=== PATIENT | female | born 1965 | race Caucasian/White ===

== ENCOUNTER 2022-01-14 02:29 | Day surgery (SDC) | payer BC, SELFPAY ==
[2022-01-04 13:19] VITALS: BMI 26.0
--- NOTE | 2022-01-04 13:36 | PC.NURSE ---
Report to the Outpatient Waiting Room, entrance under the green pavilion located off [facility], at time 0800 on date 01/14/22. OR Time: 1000. Time changes happen often and if your time is changed the preop area will call you the afternoon before. - You and your visitor will be asked to self-screen and do not enter if you have any COVID symptoms. - Only one visitor and NO children visitors are allowed at this time. - The patient visitor is requested to leave or wait in car when not with patient due to restrictions. - A mask is required within the hospital. Patients may have clear liquids (water, carbonated beverages, clear teas, apple juice) until 3 hours prior to surgery with a maximum of 20 ounces. - No food from midnight until time of surgery Take the following medications with a SIP of water the morning of surgery: CLINDAMYCIN Medications to discontinue per physician: VITAMINS/SUPPLEMENTS Date to take last dose: 01/10/22 Please no make-up, nail belarusian, hairspray, perfume, deodorant, or body powder the day of surgery. No jewelry (including any body piercings) or valuables the day of surgery, leave them at home. Please take a shower or bath the night before, or the morning of, surgery with an antibacterial soap. Wear comfortable, loose fitting clothing. - Jewelry must be removed prior to entering the operating room. Rings and piercings that are not removed may be cut off. - The hospital will not accept responsibility for valuables. - Please leave all valuables, including medications, at home the day of surgery. If you are going home after surgery, a licensed sanitation truck driver must drive you home. - NO public transportation without another adult. - We recommend that an adult stay with you for 24 hours following discharge. - We also recommend that you do not drive, make important decision, drink alcoholic beverages, or take any drugs that were not prescribed by your health care provider for at least 24 hours after your discharge time. Follow any additional instructions given to you from your surgeon. If you or anyone in your household have experienced Covid symptoms in the past week, please notify your surgeon or the nurse liaison at the phone number below for possible testing. Telephone instructions given to PT - TOMMY SEPULVEDA and asked if any additional questions and then verbalized understanding. Patient advised to call surgeon office or pre surgery nurse liaison [phone] if any additional questions.
[2022-01-14] VITALS (9 sets, daily range): BP systolic 102–149; BP diastolic 66–85; PULSE 66–85; RESP 14–18; TEMP 36.3–36.5; O2SAT 97–100
--- NOTE | 2022-01-14 08:29 | P.PNAN_ITS ---
Anes - Initial Pre Proc Eval Procedure: Operation Date: 01/14/22 10:00 Proposed Procedures p Microdirect Laryngoscopy, with Biopsy of Left Base of the Tongue Asymmetry - Anthony Ayoub MD Date/Time: 01/14/22 08:29 Surgeon: Anthony Ayoub MD Pre Op Diagnosis: tongue mass Patient Data Age: 56 Gender: F Height: 1.69 m Weight: 74.39 kg Allergies Allergy/AdvReac Type Severity Reaction Status Date / Time erythromycin base Allergy Rash Verified 01/04/22 13:13 Sulfa (Sulfonamide Allergy Rash Verified 01/04/22 13:13 Antibiotics) Home Medications Medication Instructions Recorded Confirmed Type L.acidophil,rhamnosus-B.breve,longum 1 cap PO DAILY 01/04/22 01/04/22 History 20 billion cell sprinkle capsule (Probiotic) azelastine 137 mcg (0.1 %) nasal 1 spray intranasal Q12H 01/04/22 01/04/22 History spray aerosol cetirizine 5 mg-pseudoephedrine ER 1 tablet PO BID 01/04/22 01/04/22 History 120 mg tablet,extended release,12hr (Zyrtec-D) clindamycin HCl 300 mg capsule 300 mg PO Q6H 01/04/22 01/04/22 History esomeprazole magnesium 40 mg 40 mg PO DAILY 01/04/22 01/04/22 History capsule,delayed release (Nexium) fluticasone propionate 50 1 spray intranasal BID 01/04/22 01/04/22 History mcg/actuation nasal spray,suspension montelukast 10 mg tablet 10 mg PO HS 01/04/22 01/04/22 History multivit with 1 tablet PO DAILY 01/04/22 01/04/22 History nsfejimo-duvp-SE-lutein 8 mg iron-400 mcg-300 mcg tablet (Centrum Silver Women) soy isoflavone-black cohosh 1 cap PO DAILY 01/04/22 01/04/22 History root-magnolia bark 155 mg capsule (Estroven) Patient hx anesthesia problems: none Family hx anesthesia problems: none Results Review: All pre-operative results and documents have been reviewed as part of the pre- operative evaluation. [facility] Past Medical History Medical History GERD (gastroesophageal reflux disease) Social History Social History Smoking packs per day: 1 Smoking cigarettes per day: 20.0 Years smoked: 10 Smoking pack-years: 10.00 Smoking status: Former smoker Tobacco type: cigarettes Smoking end date: 04/07/01 Alcohol intake: current Drinks per week: 5 Substance use: never Substance use type: does not use Living arrangements: with family Spiritual care concerns: No Anes - Eval Final PreProcedure Day of Procedure 01/14/22 08:29 Patient weight: overweight Heart: regular rate and rhythm Lungs: clear to auscultation Airway: Mallampati scale class II Neurological: alert and oriented Last oral intake: >/= 8 hours ASA classification: II Emergent: no Anesthetic plan: proceed Anesthesia type and monitoring: general ETT and standard monitoring Results Review: All pre-operative results and documents have been reviewed as part of the pre- operative evaluation. Informed Consent: The patient's anesthetic plan and its attendant risks and benefits were discussed with the patient/family/POA. Questions were solicited and answers provided to the satisfaction of the patient/family/POA.
[2022-01-14] MEDS: LACTATED RINGERS 1,000 ML 30 ML IV CONT (08:50)
--- NOTE | 2022-01-14 09:39 | PM.IMHP ---
H&P: HPI History of Present Illness Date/Time: 01/14/22 09:39 Chief Complaint: left tongue base mass Narrative: left tongue base lesion noted on CT and laryngoscopy Review of Systems Review of Systems: All systems reviewed & are unremarkable except as noted in HPI and below PMFSH Past Medical History Medical History GERD (gastroesophageal reflux disease) Social History Social History Smoking packs per day: 1 Smoking cigarettes per day: 20.0 Years smoked: 10 Smoking pack-years: 10.00 Smoking status: Former smoker Tobacco type: cigarettes Smoking end date: 04/07/01 Alcohol intake: current Drinks per week: 5 Substance use: never Substance use type: does not use Living arrangements: with family Spiritual care concerns: No Meds Home Medications and Allergies Home Medications Medication Instructions Recorded Confirmed Type L.acidophil,rhamnosus-B.breve,longum 1 cap PO DAILY 01/04/22 01/14/22 History 20 billion cell sprinkle capsule (Probiotic) azelastine 137 mcg (0.1 %) nasal 1 spray intranasal Q12H 01/04/22 01/14/22 History spray aerosol cetirizine 5 mg-pseudoephedrine ER 1 tablet PO BID 01/04/22 01/14/22 History 120 mg tablet,extended release,12hr (Zyrtec-D) clindamycin HCl 300 mg capsule 300 mg PO Q6H 01/04/22 01/14/22 History esomeprazole magnesium 40 mg 40 mg PO DAILY 01/04/22 01/14/22 History capsule,delayed release (Nexium) fluticasone propionate 50 1 spray intranasal BID 01/04/22 01/14/22 History mcg/actuation nasal spray,suspension montelukast 10 mg tablet 10 mg PO HS 01/04/22 01/14/22 History multivit with 1 tablet PO DAILY 01/04/22 01/14/22 History ubcefebm-uvjd-EH-lutein 8 mg iron-400 mcg-300 mcg tablet (Centrum Silver Women) soy isoflavone-black cohosh 1 cap PO DAILY 01/04/22 01/14/22 History root-magnolia bark 155 mg capsule (Estroven) Allergies Allergy/AdvReac Type Severity Reaction Status Date / Time erythromycin base Allergy Rash Verified 01/14/22 08:45 Sulfa (Sulfonamide Allergy Rash Verified 01/14/22 08:45 Antibiotics) Vital Signs Vital Signs - 24 hr 01/14/22 08:46 Temperature 36.5 C Pulse Rate 85 Respiratory Rate 16 Blood Pressure 149/85 H Pulse Oximetry 100 Oxygen Delivery Room Air Exam Narrative: fullness of left base of tongue noted on laryngoscopy and CT. No adenoapathy, rest of exam wnl. Assessment and Plan Assessment and plan (1) Neoplasm of base of tongue: Code(s): D49.0 - Neoplasm of unspecified behavior of digestive system Status: Acute Plan Nan is here for direct laryngoscpoy with biopsy of left tongue base lesion seen on laryngoscopy and CT. r/b/a reviewed, she understands and agrees to proceed. Refer to outpt H&p for full details.
--- NOTE | 2022-01-14 09:41 | WPDHPUPDATE1 ---
History and Physical Update Update Date/Time: 01/14/22 09:41 History and Physical has been reviewed, including an updated exam of the patient. There are NO changes in the patient's condition. Risks, benefits, and alternatives have been discussed and questions answered. Patient agrees to proceed with procedure.
--- NOTE | 2022-01-14 10:14 | W.PM.PROC2 ---
Procedure Note - Detailed Date of Procedure 01/14/22 Pre-op Diagnosis tongue mass Post-op Diagnosis Same Procedure Performed Direct laryngoscopy with biopsy of left tongue base mass Surgeon Anthony Ayoub MD Indications left base of tongue mass Findings Small left tongue base lesion, photos taken and biopsied. Did not appear malignant. Description of Procedure On the date of surgery, the patient was identified in the preoperative holding area. All questions answered, consent signed and verified and they agreed to proceed. They were then brought to the OR and placed under general endotracheal anesthesia with a 6.5 sized endotracheal tube. A shoulder roll was placed. Timeout was performed verifying the correct patient identity and procedure to be performed which they were. The patient was then draped in standard fashion for direct laryngoscopy with biopsy. The bed was rotated 90 degrees counter-clockwise and a dental guard was placed to protect the upper teeth. A laryngoscope was then advanced in the oral cavity and upper airway to visualize all subsites of the oral cavity, oropharynx, hypopharynx and larynx. The only lesions noted were on the left tongue base. The patient was then suspended from the grant stand. Under endoscopic visualization, photos taken. Using biopsy forceps, the tongue base lesoin was then removed with cup forceps and several specimens sent for pathologic analysis. Satisfied with the biopsy, the procedure was concluded. The laryngoscope was removed, the dental guard removed, and the oral cavity was examined showing no injury to lips, gums, teeth or tongue. Care of the patient was returned to anesthesia who extubated the patient and transferred to the PACU for recovery in stable condition without complication. Estimated Blood Loss 10 Pathology Yes (left base of tongue mass) Condition Stable Disposition PACU
[2022-01-14] MEDS: fentaNYL CITRATE INJ (*CRX) 100 MCG/2 ML VIAL 25 MCG IV PUSH ×4 (10:36→10:50)
[2022-01-14] MEDS: oxyCODONE HCL (*CRX) 5 MG TAB IR PO (11:30)
== END 2022-01-14 12:20 | disposition home or self-care (01) ==
PROVIDERS: Visit Provider Otolaryngology
PROC: 0CJS8ZZ Inspection of Larynx, Via Natural or Artificial Opening Endoscopic (ICD-10-PCS; CPT 41110; principal; 2022-01-14 10:00)
DX: K14.8 Other diseases of tongue (principal); K21.9 Gastro-esophageal reflux disease without esophagitis; Z87.891 Personal history of nicotine dependence
CPT/HCPCS: 41110; 88304; 88342; A9270; J0330; J1100; J2405; J2704; J3010; J7120